=== PATIENT | male | born 1965 | race Caucasian/White ===

== ENCOUNTER 2016-04-11 13:42 | Emergency (ER) | payer MEDICARE ==
[2016-04-11 15:02] VITALS: TEMP 97.7
[2016-04-11 15:03] VITALS: BMI 29.0
--- NOTE | 2016-04-11 15:21 | EDPRACDOC ---
- General Information Chief Complaint: Head Injury Stated Complaint: HIT TOP OF HEAD WITH CEILING FAN SCATCH DAZED Time Seen by Provider: 04/11/16 15:01 Mode Of Arrival: Car Home Medications: Home Medications Duloxetine HCl [Cymbalta] 30 mg PO DAILY 01/08/16 Duloxetine [Cymbalta] 60 mg PO DAILY #30 capsule 01/08/16 Gabapentin [Neurontin] 400 mg PO BID #60 capsule 01/08/16 Gabapentin [Neurontin] 800 mg PO DAILY 01/08/16 Tamsulosin HCl [Flomax] 0.4 mg PO DAILY 01/08/16 Tramadol HCl [Ultram] 50 mg PO Q6H PRN #15 tab 04/11/16 Allergies/Adverse Reactions: Allergies Allergy/AdvReac Type Severity Reaction Status Date / Time No Known Allergies Allergy Verified 04/11/16 14:01 - History of Present Illness Onset: today HPI: Pt states he walked across bed this morning and was hit in forehead by ceiling fan. States possible LOC. Denies vision changes, n/v, neck or back pain. Tetanus UTD. Location: Reports: Frontal Pain Quality: Reports: Mild, Throbbing Modifying Factors: Denies: Medication, Exposure to light, Cold therapy, Immobilization, Movement, Rest Prior work up: Denies: NO, O, CT, LP, MRI, Neurologist Associated Signs and Symptoms: Reports: Loss of Consciousness, Other (abrasion) ED Past Medical History - History Reviewed Yes Nurses notes reviewed and agree except as marked - Patient Medical History Psychological History: Reports: Anxiety. Denies: Depression - Social Medical History Smoking Status: Never smoker ETOH: None Substance Abuse: None EDM Review of Systems - Review of Systems Constitutional: No Symptoms Reported. negative: Fever, Chills, Weakness, Fatigue, Loss of Appetite Eyes: No Symptoms Reported. negative: Redness, Blurred Vision, Double Vision, Discharge, Pain, Light Sensitive, Photophobia Ears: No Symptoms Reported. negative: Pain, Hearing Loss, Drainage, Ear Pulling Throat: No Symptoms Reported. negative: Pain, Swelling Nose: No Symptoms Reported. negative: Congestion, Bleeding, Discharge, Injection, Swelling, Deformity, Ecchymosis, Tender, Abrasion, Laceration Mouth: No Symptoms Reported. negative: Pain, Drooling Respiratory: No Symptoms Reported. negative: Cough, Brassy Cough, Barky Cough, Shortness of Breath, Wheezing, Hemoptysis Cardiovascular: No Symptoms Reported. negative: Chest Pain, Palpitations, Syncope, Edema, Orthopnea, PND, Skin Mottling, Cyanosis Gastrointestinal: No Symptoms Reported. negative: Pain, Constipation, Nausea, Vomiting, Diarrhea, Melena, Formula Intolerance Genitourinary: No Symptoms Reported. negative: Dysuria, Hematuria, Frequency, Discharge, Bleeding, Testicular Pain, Neurological: Headache Musculoskeletal: No Symptoms Reported. negative: Neck, Chestwall, Ribs, Back, Shoulder, Arm, Elbow, Forearm, Wrist, Hand, Pelvis, Hip, Femur, Knee, Leg, Ankle , Foot Integumentary: Wound Allergic/Immunologic: No Symptoms Reported. negative: Hives, Itching Hematologic: No Symptoms Reported. negative: Lymphadenopathy, Easy Bruising, Easy Bleeding Psychiatric: No Symptoms Reported. negative: Anxiety, Depression, Hallucinations, Insomnia, Suicidal - Physical Exam Constitutional: Alert (Awake), No apparent distress Oriented to: Time, Person, Place Last recorded Vital Signs: Last Vital Signs Temp 97.7 F 04/11/16 15:01 Pulse 65 04/11/16 15:01 Resp 18 04/11/16 15:01 BP 126/82 04/11/16 15:01 Pulse Ox 95 04/11/16 15:01 Oxygen Pulse Oxygen Saturation 95 O2 Device Room Air Oxygen Flow Rate Fraction of Inspired Oxygen ( FIO2) - HEENT Head: Abrasion (forehead) Eye Exam: Normal (PERRL, EOMI, Sclera white) Oropharynx: Normal (Pharynx:Moist without exudate,Gums-no swelling) Tympanic Membrane: Normal ENT EAC: Normal TMJ: Normal Nose: No Symptoms Reported (septum midline) Neck: Normal (FROM, trachea at midline) - Respiratory/Cardiovascular Respiratory: Normal - CTA (BBS clear to auscultation without adventitious sounds ) Cardiovascular: Normal (RRR without murmur, gallop or rub) - Musculoskeletal Back: Normal (Non-Tender) Extremities: Normal (Normal tone, Pulses 2+ No cyanosis or edema, FROM) - Integumentary Skin: Normal, Warm, Dry Lymphatics: Normal (no adenopathy) - Neurologic Memory Impaired: Normal Motor Function: Normal (Normal tone, Pulses 2+ No cyanosis or edema, FROM) Mood Description: Normal Perception: Normal - Differential Diagnosis Abrasion, Closed Head Injury, Contusion - Diagnostic Imaging Head Image interpreted by: Radiologist Diagnostic Imaging Comments: IMPRESSION: 1. No significant intracranial abnormality identified. Decision Time to Discharge: 16:20 - Departure Disposition: Home Condition: Good Final Diagnosis: Concussion with less than 1 hour loss of consciousness Abrasion of forehead Qualifiers: Encounter type: initial encounter Qualified Code(s): S00.81XA - Abrasion of other part of head, initial encounter Contusion of scalp Qualifiers: Encounter type: initial encounter Qualified Code(s): S00.03XA - Contusion of scalp, initial encounter Instructions: Concussion (ED), Head Injury (ED) Education/Counseling Given To: Patient Education/Counseling Given Regarding: Diagnosis, Treatment, Follow Up Referrals: None,No Provider [Primary Care Provider] - One Week Chaka Kruse MD [Staff Physician] - One Week Prescriptions: New Tramadol HCl [Ultram] 50 mg PO Q6H PRN #15 tab PRN Reason: Pain No Action Gabapentin [Neurontin] 800 mg PO DAILY Duloxetine [Cymbalta] 60 mg PO DAILY #30 capsule Gabapentin [Neurontin] 400 mg PO BID #60 capsule Tamsulosin HCl [Flomax] 0.4 mg PO DAILY Duloxetine HCl [Cymbalta] 30 mg PO DAILY Additional Instructions: Return for worse or different symptoms.
--- NOTE | 2016-04-11 16:14 | DIRPT ---
CLINICAL DATA: Ceiling faint struck patient's head approximately 10 a.m. today. Dizziness. Loss of consciousness. EXAM: CT HEAD WITHOUT CONTRAST TECHNIQUE: Contiguous axial images were obtained from the base of the skull through the vertex without intravenous contrast. COMPARISON: None. FINDINGS: The brainstem, cerebellum, cerebral peduncles, thalami, basal ganglia, basilar cisterns, and ventricular system appear within normal limits. No intracranial hemorrhage, mass lesion, or acute CVA. Visualized paranasal sinuses appear clear. No calvarial injury is identified. IMPRESSION: 1. No significant intracranial abnormality identified. Electronically Signed By: Shubham Gan M.D. On: 04/11/2016 16:11
[2016-04-11 16:49] VITALS: BP 110/70; PULSE 62
== END 2016-04-11 16:54 | disposition home or self-care (01) ==
LOC: ED 13:42 → EDMC 16:54
DX: S06.0X9A Concussion with loss of consciousness of unspecified duration, initial encounter (principal); X58.XXXA Exposure to other specified factors, initial encounter; S00.81XA Abrasion of other part of head, initial encounter; S00.03XA Contusion of scalp, initial encounter; W22.8XXA Striking against or struck by other objects, initial encounter; Y93.89 Activity, other specified
CPT/HCPCS: 70450; 99283